=== PATIENT | male | born 1990 | race Caucasian/White ===

== ENCOUNTER 2019-02-13 09:01 | Inpatient (IN) ==
[2019-02-13 10:57] LABS: Basophils # 0.1 10*3/uL (0.0-0.2); Basophils % 0.3 % (0.0-0.8); Eosinophils % 0.1 % (0.00-10.9); Hemoglobin 16.5 GM/DL (14.0-18.0); Immature Granulocytes % 0.7 %; Immature Granulocytes Absolute 0.13 #; Lymphocytes # 1.3 10*3/uL (1.4-4.0); Lymphocytes % 7.2 % (21.2-54.2); Mean Platelet Volume 10.9 FL (9.6-12.0); Neutrophils % 86.7 % (38.7-73.9); Platelet Count 244 T/CUMM (130-400); Red Blood Count 5.62 MC/CUMM (3.8-5.5); Red Cell Distribution Width 12.4 % (9.3-17.3); White Blood Count 17.4 T/CUMM (4-12)
[2019-02-13 11:02] LABS: Apearance,Urine Slightly Hazy (Clear); Bilirubin,Urine Negative (Negative); Blood, Urine Negative (Negative); Calcium Oxalate Crystals,Urine Occasional /HPF (Few); Glucose,Urine (UA) Negative (Negative); Ketones,Urine 20 mg/dL (Negative); Mucus,Urine Many /LPF (Occasional); Nitrite,Urine Negative (Negative); Protein,Urine 30 MG/DL; RBC,Urine 2 /HPF (0-4); Squamous Epithelial Cell,Urine Occasional /HPF (0-10); Urine Color Amber (Yellow); Urine Specific Gravity 1.028 (1.001-1.035); WBC,Urine 9 /HPF (0-6)
[2019-02-13 11:08] LABS: Bilirubin,Total 1.2 MG/DL (0.2-1.0); Calcium 9.4 MG/DL (8.5-10.1); Osmolality,Calculated 278.4 MOS/KG (273-304); Total Protein 8.4 G/DL (6.4-8.3)
[2019-02-13] MEDS ORDERED: ONDANSETRON 4 MG/2 ML VIAL IV STA (11:19)
[2019-02-13] MEDS ORDERED: MORPHINE 4 MG/1 ML VIAL IV STA (11:23)
[2019-02-13] MEDS ORDERED: MORPHINE 4 MG/1 ML VIAL ONE (11:24)
[2019-02-13] MEDS ORDERED: SODIUM CHLORIDE 0.9% 1,000 ML IV STA (12:16)
[2019-02-13] MEDS ORDERED: PIPERACILLIN/TAZOBACTAM 3,375 MG in SODIUM CHLORIDE 0.9% 100 ML IV STA (12:29)
[2019-02-13] MEDS ORDERED: ONDANSETRON 4 MG/2 ML VIAL IV PRN ×2 (13:13→14:52)
[2019-02-13] MEDS ORDERED: ALBUTEROL/IPRATROPIUM 3 ML NEB RESP TX PRN (13:13)
[2019-02-13] MEDS ORDERED: ACETAMINOPHEN 325 MG TABLET PO PRN (13:13)
[2019-02-13] MEDS ORDERED: BISACODYL 5 MG TABLET PO PRN (13:13)
[2019-02-13] MEDS ORDERED: HYDROmorphone 2 MG/1 ML VIAL IV STA (13:31)
[2019-02-13] MEDS ORDERED: TISSUE ADHESIVE 1 EACH APPLICATOR TOP ONE (13:54)
[2019-02-13] MEDS ORDERED: BUPIVACAINE 0.25% /EPI 10 ML VIAL ONE (13:54)
[2019-02-13] MEDS ORDERED: LIDOCAINE 1%/EPI INJ 20 ML VIAL ONE (13:54)
[2019-02-13] MEDS: LACTATED RINGERS 1,000 ML IV SCH ×2 (14:09→23:11)
[2019-02-13] MEDS ORDERED: PROMETHAZINE INJ 25 MG in SODIUM CHLORIDE 0.9% 50 ML IV PRN (14:52)
[2019-02-13] MEDS ORDERED: HYDROmorphone 2 MG/1 ML VIAL IV PRN (14:52)
[2019-02-13] MEDS ORDERED: DEXAMETHASONE 4 MG/1 ML VIAL ONE (15:43)
[2019-02-13] MEDS ORDERED: MIDAZOLAM 2 MG/2 ML VIAL ONE (15:43)
[2019-02-13] MEDS ORDERED: ONDANSETRON 4 MG/2 ML VIAL ONE ×2 (15:43→15:54)
[2019-02-13] MEDS ORDERED: PROPOFOL 200 MG/20 ML VIAL IV ONE (15:43)
[2019-02-13] MEDS ORDERED: KETOROLAC 30 MG/1 ML VIAL ONE (15:43)
[2019-02-13] MEDS ORDERED: fentaNYL 100 MCG/2 ML VIAL ONE ×2 (15:43)
[2019-02-13] MEDS ORDERED: ROCURONIUM 100 MG/10 ML VIAL IV ONE (15:44)
[2019-02-13] MEDS ORDERED: GLYCOPYRROLATE 0.4 MG/2 ML VIAL ONE (15:44)
[2019-02-13] MEDS ORDERED: LACTATED RINGERS 1,000 ML IV ONE (15:44)
[2019-02-13] MEDS ORDERED: NEOSTIGMINE 10 MG/10 ML VIAL ONE (15:44)
[2019-02-13] MEDS: MEPERIDINE 25 MG/1 ML VIAL IV PRN ×3 (15:50→16:05)
[2019-02-13] MEDS ORDERED: MEPERIDINE 25 MG/1 ML VIAL ONE ×2 (15:54→16:04)
[2019-02-13] MEDS: KETOROLAC 10 MG TABLET PO PRN (17:36)
[2019-02-13] MEDS: PIPERACILLIN/TAZOBACTAM 3,375 MG in SODIUM CHLORIDE 0.9% 100 ML IV SCH (21:01)
[2019-02-13] MEDS: HYDROmorphone 2 MG/1 ML VIAL IV PRN (21:12)
[2019-02-14] MEDS: KETOROLAC 10 MG TABLET PO PRN (04:09)
[2019-02-14] MEDS: PIPERACILLIN/TAZOBACTAM 3,375 MG in SODIUM CHLORIDE 0.9% 100 ML IV SCH ×3 (05:10→21:32)
[2019-02-14 05:12] LABS: Basophils % 0.2 % (0.0-0.8); Hematocrit 42.1 VOL% (42.0-52.0); Hemoglobin 13.8 GM/DL (14.0-18.0); Immature Granulocytes % 0.8 %; Immature Granulocytes Absolute 0.15 #; Lymphocytes # 1.4 10*3/uL (1.4-4.0); Lymphocytes % 7.8 % (21.2-54.2); Mean Corpuscular HGB Conc 32.8 GM/DL (32-36); Mean Corpuscular Volume 90.3 FL (87-102); Mean Platelet Volume 11.4 FL (9.6-12.0); Monocytes % 5.8 % (1.7-12.7); Neutrophils % 85.4 % (38.7-73.9); Platelet Count 189 T/CUMM (130-400); Red Blood Count 4.66 MC/CUMM (3.8-5.5); Red Cell Distribution Width 12.5 % (9.3-17.3); White Blood Count 17.7 T/CUMM (4-12)
[2019-02-14 05:37] LABS: Albumin 2.8 G/DL (3.4-5.0); Bilirubin,Total 1.5 MG/DL (0.2-1.0); Calcium 8.8 MG/DL (8.5-10.1); Osmolality,Calculated 278.3 MOS/KG (273-304); Total Protein 6.3 G/DL (6.4-8.3)
[2019-02-14] MEDS: PANTOPRAZOLE 40 MG TABLET PO SCH (08:45)
[2019-02-14] MEDS: HYDROmorphone 2 MG/1 ML VIAL IV PRN ×3 (14:57→23:55)
[2019-02-14] MEDS: LACTATED RINGERS 1,000 ML IV SCH ×2 (22:35→22:36)
[2019-02-15] MEDS: HYDROmorphone 2 MG/1 ML VIAL IV PRN ×2 (03:40→05:59)
[2019-02-15 04:50] LABS: Basophils # 0.1 10*3/uL (0.0-0.2); Basophils % 0.4 % (0.0-0.8); Eosinophils # 0.1 10*3/uL (0.0-0.87); Eosinophils % 0.5 % (0.00-10.9); Hematocrit 40.9 VOL% (42.0-52.0); Hemoglobin 12.9 GM/DL (14.0-18.0); Immature Granulocytes % 0.7 %; Immature Granulocytes Absolute 0.09 #; Lymphocytes % 23.3 % (21.2-54.2); Mean Corpuscular HGB Conc 31.5 GM/DL (32-36); Mean Corpuscular Volume 91.9 FL (87-102); Mean Platelet Volume 11.2 FL (9.6-12.0); Monocytes % 8.3 % (1.7-12.7); Neutrophils % 66.8 % (38.7-73.9); Platelet Count 193 T/CUMM (130-400); Red Blood Count 4.45 MC/CUMM (3.8-5.5)
[2019-02-15 05:23] LABS: Bilirubin,Total 0.8 MG/DL (0.2-1.0); Calcium 8.6 MG/DL (8.5-10.1); Osmolality,Calculated 285.8 MOS/KG (273-304); Total Protein 6.2 G/DL (6.4-8.3)
[2019-02-15] MEDS: PIPERACILLIN/TAZOBACTAM 3,375 MG in SODIUM CHLORIDE 0.9% 100 ML IV SCH (05:59)
[2019-02-15] MEDS: LACTATED RINGERS 1,000 ML IV SCH (06:38)
[2019-02-15] MEDS: PANTOPRAZOLE 40 MG TABLET PO SCH (09:19)
[2019-02-15 11:55] VITALS: BP 126/75
== END 2019-02-15 13:05 | disposition home or self-care (01) | DRG 418 ==
LOC: N.ED 09:01 → N.EDINP 13:13 → N.3E 16:21
PROVIDERS: ADMIT Surgery; ATTEND Surgery
PROC: LAPCHOL (2019-02-13 14:08)